=== PATIENT | male | born 1965 | race Caucasian/White ===

== ENCOUNTER 2019-01-25 22:26 | Emergency (ER) | payer OTHER ==
[2019-01-25 22:33] VITALS: TEMP 97.8
--- NOTE | 2019-01-25 22:55 | ED ---
ENT HPI - General Chief complaint: ENT Stated complaint: Facial injury Time Seen by Provider: 01/25/19 22:36 Source: patient, family Mode of arrival: ambulatory Limitations: no limitations - History of Present Illness Initial comments: Patient is a 53-year-old male presenting to emergency Department with a chief complaint nose pain. Patient reports playing baseball 6 hours ago and he was hit in the the nose and after he developed epistaxis from bilateral nostrils. Patient denies loss of consciousness at the time of incident. Patient reports that his nasal passages feel "congested." Patient reports the pain is minimal at rest and only exacerbated with palpation Patient denies headache, nausea, vomiting, blurry vision. Patient does report a previous injury to right orbit. Patient denies taking any medication to alleviate the symptoms. - Related Data Home Medications Medication Instructions Recorded Confirmed No Known Home Medications 01/25/19 01/25/19 Allergies Allergy/AdvReac Type Severity Reaction Status Date / Time No Known Allergies Allergy Verified 01/25/19 22:58 Review of Systems ROS Statement: Those systems with pertinent positive or pertinent negative responses have been documented in the HPI. ROS Other: All systems not noted in ROS Statement are negative. Past Medical History Past Medical History: No Reported History History of Any Multi-Drug Resistant Organisms: None Reported Past Surgical History: Orthopedic Surgery Additional Past Surgical History / Comment(s): eye surgery, jaw surgery, Past Psychological History: No Psychological Hx Reported Smoking Status: Never smoker Past Alcohol Use History: None Reported, Occasional Past Drug Use History: None Reported General Exam - General Exam Comments Initial Comments: General: Well-developed well-nourished distress HEENT: Normocephalic/atraumatic, PERLL, no blood present in the posterior pharynx, no active bleeding from either nostril, no septal hematoma, minor abrasion on the nose, no nasal bony deformity, nose appears midline, mild edema, TM clear, no cervical lymph nodes Neck: Supple, nontender, trachea midline Chest/Lungs: Normal respirations, no signs of respiratory distress clear to auscultation bilaterally no wheezes, rales, rhonchi Cardiac: Regular rate and rhythm, normal S1-S2, no murmurs rubs or gallops Abdomen/GI: Soft nontender, bowel sounds equal or quadrant x4, no guarding, no rebound no CVA tenderness Musculoskeletal: Nontender, full range of motion, no edema, strength equal bilaterally Skin: Warmth, no rashes or lesions, no cyanosis or diaphoresis Neurologic: AAO x 3, CN 2-12 intact, Psychiatric: Mood and affect normal, judgment normal Limitations: no limitations Course Vital Signs 01/25/19 01/26/19 22:28 00:23 Temperature 97.8 F Pulse Rate 89 78 Respiratory 20 18 Rate Blood Pressure 132/95 117/80 O2 Sat by Pulse 97 99 Oximetry Medical Decision Making - Medical Decision Making Patient is a 53-year-old male presenting to emergency Department with chief complaint of nose pain. Nasal bone x-ray showing a mildly displaced nasal bone fracture. Patient advised to alternate between Tylenol and ibuprofen for pain control. Patient advised to apply cold compress to minimize swelling and pain. Patient advised to follow-up with ENT for further management. Patient advised to avoid blowing nose. Strict return parameters were thoroughly discussed the patient was understanding and agreeable. Case was discussed with Dr. Solorio who also reviewed imaging and is in agreement with the treatment plan. Disposition Clinical Impression: Nasal fracture Disposition: HOME SELF-CARE Condition: Stable Instructions (If sedation given, give patient instructions): Nasal Fracture (ED) Additional Instructions: Please follow with ENT. Please return to emergency department if symptoms worsen. Alternate between Tylenol and ibuprofen for pain control. Apply ice compress to minimize symptoms. Is patient prescribed a controlled substance at d/c from ED?: No Referrals: Mario Cordero MD [Primary Care Provider] - 1-2 days Zain Allen MD [STAFF PHYSICIAN] - 1-2 days Time of Disposition: 00:16
--- NOTE | 2019-01-25 23:28 | XR ---
EXAM: XR Nasal Bones, 3 or More Views CLINICAL HISTORY: ITS.REASON XR Reason: Pain TECHNIQUE: Frontal and lateral views of the nasal bones. COMPARISON: No relevant prior studies available. IMPRESSION: Mildly displaced nasal bone fracture. Prior right orbital wall fixations.
[2019-01-26 00:25] VITALS: BP 117/80; PULSE 78; RESP 18
== END 2019-01-26 00:25 | disposition home or self-care (01) ==
LOC: EC 22:26
DX: S02.2XXA Fracture of nasal bones, initial encounter for closed fracture (principal); W21.03XA Struck by baseball, initial encounter; Y93.64 Activity, baseball; Y92.89 Other specified places as the place of occurrence of the external cause
CPT/HCPCS: 70160; 99283